=== PATIENT | female | born 1990 | race African-American/Black ===

== ENCOUNTER 2019-10-19 13:35 | Emergency (ER) | payer SELFPAY ==
[~2019-10-19] VITALS: Ht 162.6 cm; Wt 75.0 kg
[2019-10-19] MEDS ORDERED: PNV1TABL50 MT (13:44)
[2019-10-19 14:33] VITALS: BP 130/76
== END 2019-10-19 14:36 | disposition home or self-care (01) ==
LOC: ER 13:35
DX: J06.9 Acute upper respiratory infection, unspecified (principal)
CPT/HCPCS: 99283